=== PATIENT | male | born 1985 ===

== ENCOUNTER 2016-06-26 01:19 | Emergency (ER) | payer MEDICAID, OTHER ==
[~2016-06-26] VITALS: Ht 175.3 cm; Wt 81.8 kg
[2016-06-26 01:22] VITALS: BP 150/96; PULSE 88; RESP 16; O2SAT 100
--- NOTE | 2016-06-26 02:23 | ED.REPORT ---
HPI-Rash / Abscess Date of Service Jun 26, 2016 ED Provider: Dr. Mane Pt is a 31 year old male presenting to the ED complaining of redness and swelling to his lower abdomen. He reports that it was a rash at his belt line. He denies drainage from the abscess. Nursing Notes Stated Complaint: INFECTION ON LOWER ABDOMEN Chief Complaint: Skin Rash/Abscess Nursing Notes Reviewed: Yes Allergies: Coded Allergies: No Known Allergies (Unverified , 06/26/16) General Time Seen by MD: 02:23 Chief Complaint Abscess Hx Obtained From: Patient Arrived By: Walk-in Onset Occurred: Onset unknown Symptom Duration: Since onset Location: : Abdomen Quality: Painful Severity: Current: Moderate Severity: Maximum: Moderate Recent Healthcare: No recent doctor visit, No recent hospitalization Similar Sx Previous: No Past Medical History Past Medical History denies Past Surgical History denies Smoking History Unknown if Ever Smoker Ambulatory Status Independent Review of Systems Constitutional: Denies: Fever Respiratory: Denies: Shortness of breath GI: Denies: Vomiting Skin: Reports Rash, Reports Swelling Complete sys rev & neg: except as marked. Physical Exam Initial Vital Signs Vital Signs (First) Date Time Temp Pulse Resp B/P Pulse Ox O2 Delivery O2 Flow Rate FiO2 06/26/16 01:22 36.4 88 16 150/96 100 Room Air Initial VS: Reviewed Head / Eyes: Atraumatic, Normocephalic, PERRL ENT: Mucous membranes moist, Conjunctiva normal, No scleral icterus Neck: Supple, Non-tender, Full range of motion Respiratory: Breath sounds normal, Clear to auscultation, No respiratory distress Cardiovascular: Regular rate & rhythm, Heart sounds normal, Intact distal pulses Extremities: Vascular intact, Neuro intact, No swelling, No tenderness Neurologic: Alert, Oriented, Nonfocal Psychiatric: Mood/affect normal, Behavior normal, Normal thought content General/Constitutional: Awake, Alert, Well appearing Skin: Warm, Dry, Intact Rash / Lesion Notes: 2 cm induration on lower abdomen with surrounding cellulitis and some fluctuance. Procedures Incision & Drainage Abscess Time: 03:14 Procedure Performed by: ED physician Consent / Setup / Site Prep: Consent from patient, Time-out performed, Hand hygiene observed, Stand sterile technique, Standard surgical scrub, Sterile drapes applied Local Anesthesia: Lidocaine w epi 2% Post-Procedure / Complications: Dressing applied, No complications, Condition improved, Tolerated procedure well, Patient stable Re-Eval/Medical Decision Re-Evaluation/Progress #1: Time of Eval: 03:15 Patient Status: Condition improved Re-Evaluation/Progress Note: Performed I&D procedure. Pt tolerated procedure well. Re-Evaluation/Progress #2: Time of Eval: 03:24 Patient Status: Condition improved Re-Evaluation/Progress Note: Discussed plan for discharge. Pt understands and agrees. Counseled Regarding: Diagnosis, Lab results, Need for follow-up, When/why to return to ED Discharge & Departure Impression: Primary Impression: Abscess Additional Impression: Cellulitis Site of cellulitis of trunk: abdominal wall Disposition: Home Discharge Condition All VS Reviewed: Yes Condition: Improved Patient Instructions: Cellulitis (ED) Additional Instructions: Keflex 4 times daily for 7 days. Bactrim twice daily for 7 days. 1-2 [place] every 6 hours as needed for pain. Have the area rechecked in about 3 days. Come back to the emergency department any time if it worsens. Do not drive or drink alcohol or consume acetaminophen while taking the [place]. Contact referral clinic for follow-up. Referrals: [facility] (PCP) [facility] Yolande Attestation Portions of this note were transcribed by Maria Victoria Haley. I, Dr. Mane personally performed the history, physical exam and medical decision-making; I reviewed and confirmed the accuracy of the information in the transcribed note. Signed by : Yolande Eubanks, 06/26/2016 and 0324. copies to: [facility] Rudy Mane DO Jun 26, 2016 02:23 MARIA VICTORIA HALEY Jun 26, 2016 02:27
[2016-06-26] MEDS ORDERED: Lidocaine 2%-Epi 1:100,000 20 mL Inj NERVEBLOCK ONE (03:05)
[2016-06-26] MEDS ORDERED: Trimethoprim-Sulfa 160 mg-800 mg Tablet PO ONE (03:05)
[2016-06-26] MEDS ORDERED: _HYDROcodone/APAP 5-325 mg Tablet PO PRN (03:10)
[2016-06-26 03:56] VITALS: BP 135/88; PULSE 90; RESP 14; O2SAT 99
== END 2016-06-26 03:52 | disposition home or self-care (01) ==
LOC: SED 01:19
DX: L02.211 Cutaneous abscess of abdominal wall (principal)